=== PATIENT | female | born 1960 ===

== ENCOUNTER 2019-03-15 13:34 | Emergency (ER) | payer BC ==
[2019-03-15 13:44] VITALS: PULSE 84; TEMP 97.3; BMI 37.0
[2019-03-15] MEDS ORDERED: IBUPROFEN 600 MG TABLET (FP) PO ONE ×2 (15:12)
[2019-03-15 15:19] VITALS: BP 162/97
--- NOTE | 2019-03-15 15:21 | PDOC ---
History of Present Illness - General Chief Complaint: Injury Stated Complaint: RT SHOULDER PAIN Time Seen by Provider: 03/15/19 14:12 History Source: Patient Exam Limitations: No Limitations Past History - Travel Traveled outside of the country in the last 30 days: No Close contact w/someone who was outside of country & ill: No - Past Medical History Allergies/Adverse Reactions: Allergies Allergy/AdvReac Type Severity Reaction Status Date / Time No Known Allergies Allergy Verified 03/15/19 13:41 COPD: No HTN: Yes Hypercholesterolemia: Yes - Psycho Social/Smoking Cessation Hx Smoking History: Never smoked Information on smoking cessation initiated: No Hx Alcohol Use: No Drug/Substance Use Hx: No Review of Systems - Review of Systems Able to Perform ROS?: Yes Comments:: 03/15/19 15:12 CONSTITUTIONAL: Absent: fever, chills, diaphoresis, generalized weakness, malaise, loss of appetite MUSCULOSKELETAL: Present: R shoulder pain Absent: myalgia, joint swelling SKIN: Absent: rash, itching, pallor NEUROLOGIC: Absent: headache, focal weakness or paresthesias, dizziness, unsteady gait, seizure, mental status changes, bladder or bowel incontinence PSYCHIATRIC: Absent: anxiety, depression, suicidal or homicidal ideation, hallucinations. Is the patient limited Yoruba proficient: No *Physical Exam - Vital Signs Last Vital Signs Temp Pulse Resp BP Pulse Ox 97.3 F L 84 16 172/85 H 100 03/15/19 13:41 03/15/19 13:41 03/15/19 13:41 03/15/19 13:41 03/15/19 13:41 - Physical Exam 03/15/19 15:12 GENERAL: The patient is awake, alert, and fully oriented, in no acute distress. HEAD: Normal with no signs of trauma. EYES: Pupils equal, round and reactive to light, extraocular movements intact, sclera anicteric, conjunctiva clear. EXTREMITIES: Tenderness to palpation of the right shoulder at the proximal biceps tendon. Pain with both external and internal rotation of the right shoulder. Patient has full range of motion of the right shoulder. Normal range of motion, no edema. NEUROLOGICAL: Normal speech, normal gait. PSYCH: Normal mood, normal affect. SKIN: Warm, Dry, normal turgor, no rashes or lesions noted. ED Treatment Course - RADIOLOGY Radiology Studies Ordered: Category Date Time Status SHOULDER-RIGHT [RAD] Stat Radiology 03/15/19 14:11 Taken Medical Decision Making - Medical Decision Making 03/15/19 15:21 Patient is a 58-year-old female past medical history of hypertension, hypothyroidism, presents to the ER today with right shoulder pain status post mechanical trip and fall earlier this afternoon. Patient states she was crossing the street when she tripped and landed on her right shoulder. She did not hit her head or lose consciousness. She states that every time she moves her shoulder she feels a click. Denies fevers, chills, numbness and tingling weakness the affected extremity. A/P: Right shoulder pain On exam patient with pain with internal and external rotation and pain at the proximal biceps tendon. X-ray shows no fractures or dislocations of the right shoulder. Patient is right-hand dominant. Likely a sprain of the shoulder Blood pressure is elevated in triage at 172/85, repeat pressure still elevated at 160/80. Patient to follow-up with her primary care doctor. Made aware of her blood pressure results. We will discharge home with Ortho follow-up I discussed the physical exam findings, ancillary test results and final diagnoses with the patient. I answered all of the patient's questions. The patient was satisfied with the care received and felt comfortable with the discharge plan and treatment plan. The Patient agrees to follow up with the primary care physician/specialist within 24-72 hours. Return precautions were given. Discharge - Discharge Information Problems reviewed: Yes Clinical Impression/Diagnosis: Shoulder pain Qualifiers: Chronicity: acute Laterality: right Qualified Code(s): M25.511 - Pain in right shoulder Condition: Stable Disposition: HOME - Admission No - Follow up/Referral - Patient Discharge Instructions Patient Printed Discharge Instructions: DI for Shoulder Pain Additional Instructions: You were evaluated for your shoulder pain today. Your x-ray did not reveal any broken bones or dislocation of your right shoulder. May take Tylenol thousand milligrams every 6 hours as needed for pain. (2 extra strength Tylenol) Apply ice to the area today, switch to heat tomorrow. Your blood pressure was elevated today. Please take your blood pressure twice a day and keep a diary. Follow-up with your primary care physician regarding your elevated blood pressure Follow up with orthopedics within a week if your shoulder pain is not resolving. Return to ER for any new or worsening symptoms. - Post Discharge Activity Work/Back to School Note: Back to Work
== END 2019-03-15 15:33 | disposition home or self-care (01) ==
LOC: JERFT 13:34
DX: M25.511 Pain in right shoulder (principal); I10 Essential (primary) hypertension; E03.9 Hypothyroidism, unspecified; W01.0XXA Fall on same level from slipping, tripping and stumbling without subsequent striking against object, initial encounter; Y93.89 Activity, other specified; Y92.410 Unspecified street and highway as the place of occurrence of the external cause; E78.00 Pure hypercholesterolemia, unspecified
CPT/HCPCS: 73030-TC-RT-FY; 99281-25